=== PATIENT | male | born 1985 | race Two or more races ===

== ENCOUNTER 2018-07-26 10:06 | Emergency (ER) | payer BC ==
[~2018-07-26] VITALS: Ht 172.7 cm; Wt 137.4 kg
[2018-07-26] MEDS ORDERED: ACETAMINOPHEN 500 MG TABLET ONE (10:45)
[2018-07-26] MEDS ORDERED: METHOCARBAMOL 750 MG TABLET ONE (10:45)
[2018-07-26 10:53] LABS: MICROSCOPIC NOT IND
[2018-07-26 10:55] LABS: CULTURE INDICATED? NO
[2018-07-26] MEDS ORDERED: ACETAMINOPHEN 500 MG TABLET PO ONE (11:00)
[2018-07-26] MEDS ORDERED: METHOCARBAMOL 750 MG TABLET PO ONE (11:00)
[2018-07-26 11:49] VITALS: BP 138/63
== END 2018-07-26 12:09 | disposition home or self-care (01) ==
LOC: ED 11:50
DX: M54.5 Low back pain (principal)
CPT/HCPCS: 81003; 99283